=== PATIENT | female | born 1955 | race Caucasian/White ===

== ENCOUNTER 2018-08-26 15:50 | Emergency (ER) | payer MEDICAID ==
[~2018-08-26] VITALS: Ht 160 cm; Wt 81.0 kg
[~2018-08-26 15:50] MED LIST: LISI-604 PO; METO-395 PO
[2018-08-26 17:06] VITALS: BP 129/81
[2018-08-26] MEDS ORDERED: HYDROcodone/acetaminophen 10/325mg tab PO ONE (17:50)
[2018-08-26] MEDS ORDERED: HYDR-4353 PO (17:50)
[2018-08-31] MEDS ORDERED: HYDR-4353 PO (12:50)
== END 2018-08-26 18:19 | disposition home or self-care (01) ==
LOC: ER 15:50
DX: S82.141D Displaced bicondylar fracture of right tibia, subsequent encounter for closed fracture with routine healing (principal); S82.831D Other fracture of upper and lower end of right fibula, subsequent encounter for closed fracture with routine healing; J44.9 Chronic obstructive pulmonary disease, unspecified; Z88.6 Allergy status to analgesic agent; Z79.899 Other long term (current) drug therapy; W06.XXXD Fall from bed, subsequent encounter
CPT/HCPCS: 99283

== ENCOUNTER 2020-08-30 17:20 | Emergency (ER) | payer MEDICAID ==
--- NOTE | 2020-08-30 18:05 | NUR ---
patient seen and assessed by provider
== END 2020-08-30 18:05 | disposition home or self-care (01) ==
LOC: ER 17:21
DX: R06.02 Shortness of breath (principal); R11.0 Nausea; R50.9 Fever, unspecified; Z20.828 Contact with and (suspected) exposure to other viral communicable diseases; J44.9 Chronic obstructive pulmonary disease, unspecified; Z98.890 Other specified postprocedural states; Z88.5 Allergy status to narcotic agent; Z79.899 Other long term (current) drug therapy
CPT/HCPCS: 36415; 87635; 99283

== ENCOUNTER 2022-04-11 13:32 | Emergency (ER) | payer MEDICAID ==
[~2022-04-11] VITALS: Ht 160 cm; Wt 70.0 kg
[~2022-04-11 13:32] MED LIST changes: -LISI-604 PO; +LISI5TAB22 PO
[2022-04-11 14:27] VITALS: BP 146/104
[2022-04-11] MEDS ORDERED: diazepam 5mg tablet PO ONE (14:35)
[2022-04-11] MEDS ORDERED: DIAZ5TAB22 PO (14:35)
[2022-04-11] MEDS ORDERED: MECL-159 PO (14:35)
[2022-04-11] MEDS ORDERED: meclizine 12.5mg tablet PO ONE (14:35)
[2022-04-11] MEDS ORDERED: HYDROcodone/acetaminophen 10/325mg tab PO ONE (14:35)
== END 2022-04-11 15:00 | disposition home or self-care (01) ==
LOC: ER 13:33
DX: M62.830 Muscle spasm of back (principal); R42 Dizziness and giddiness; F17.200 Nicotine dependence, unspecified, uncomplicated; I10 Essential (primary) hypertension; J44.9 Chronic obstructive pulmonary disease, unspecified; G89.29 Other chronic pain; M54.9 Dorsalgia, unspecified
CPT/HCPCS: 99284; J8597